=== PATIENT | female | born 1990 | race Two or more races ===

== ENCOUNTER 2017-06-26 22:42 | Emergency (ER) | payer MEDICAID ==
[~2017-06-26] VITALS: Ht 157.5 cm; Wt 65.8 kg
[2017-06-26 23:13] VITALS: BP 109/74
[2017-06-27] MEDS ORDERED: KETOROLAC TROMETH 60MG/2ML VIAL IM ONE ×2 (02:27→02:30)
== END 2017-06-27 03:19 | disposition home or self-care (01) ==
LOC: ER 22:44
DX: S82.65XA Nondisplaced fracture of lateral malleolus of left fibula, initial encounter for closed fracture (principal); X50.1XXA Overexertion from prolonged static or awkward postures, initial encounter; Y93.51 Activity, roller skating (inline) and skateboarding; Y99.8 Other external cause status; Y92.89 Other specified places as the place of occurrence of the external cause
CPT/HCPCS: 29515; 73610; 96372; 99284; J1885

== ENCOUNTER 2017-08-05 17:34 | Emergency (ER) | payer MEDICAID ==
[~2017-08-05] VITALS: Ht 157.5 cm; Wt 67.6 kg
[2017-08-05 18:49] VITALS: BP 122/85
== END 2017-08-05 19:51 | disposition home or self-care (01) ==
LOC: ER 17:38
DX: S82.402D Unspecified fracture of shaft of left fibula, subsequent encounter for closed fracture with routine healing (principal); X58.XXXD Exposure to other specified factors, subsequent encounter; Z88.2 Allergy status to sulfonamides
CPT/HCPCS: 29515

== ENCOUNTER 2017-10-29 19:59 | Emergency (ER) | payer MEDICAID ==
[~2017-10-29] VITALS: Ht 157.5 cm; Wt 63.0 kg
[2017-10-30 00:10] VITALS: BP 126/72
[2017-10-30 01:21] LABS: Urine Bacteria MANY /hpf (None Seen); Urine Blood 1+ /uL (Negative); Urine Hyaline Cast FEW /lpf (0 - 2); Urine Mucus FEW (None Seen); Urine Specific Gravity 1.024 (1.001-1.035); Urine WBC 3 /hpf (0 - 5)
[2017-10-30] MEDS ORDERED: SODIUM CHLORIDE 0.9% 1,000 ML IV ONE (01:34)
== END 2017-10-30 02:50 | disposition home or self-care (01) ==
LOC: ER 19:59
DX: O23.41 Unspecified infection of urinary tract in pregnancy, first trimester (principal); Z88.2 Allergy status to sulfonamides
CPT/HCPCS: 81001; 81025; 96360; 99284; J7030

== ENCOUNTER 2017-11-07 05:47 | Emergency (ER) | payer MEDICAID ==
[~2017-11-07] VITALS: Ht 157.5 cm; Wt 65.8 kg
[2017-11-07 07:01] LABS: Urine Bacteria FEW /hpf (None Seen); Urine Blood TRACE /uL (Negative); Urine Mucus FEW (None Seen); Urine Specific Gravity 1.025 (1.001-1.035); Urine WBC 1 /hpf (0 - 5)
[2017-11-07 08:53] LABS: Basophils # (auto) 0.1 uL; Basophils % (auto) 0.6 % (0.0-2.0); Eosinophils # (auto) 0.6 uL; Eosinophils % (auto) 5.1 % (0.0-7.0); Hematocrit 40.8 % (36.0-46.0); Hemoglobin 13.6 g/dL (12.2-16.2); Lymphocytes # (auto) 2.8 uL; Lymphocytes % (auto) 25.4 % (10.0-50.0); Mean Corpuscular Hemoglobin 28.6 pg (28.0-32.0); Mean Corpuscular Hgb Conc. 33.4 g/dL (32.0-36.0); Mean Corpuscular Volume 85.5 fL (80.0-100.0); Monocytes # (auto) 0.7 uL; Monocytes % (auto) 6.8 % (0.0-12.0); Neutrophils # (auto) 6.8 uL; Neutrophils % (auto) 62.1 % (37.0-80.0); Nucleated Red Blood Cells % 0.1 %; Platelet Count (auto) 410 10^3/uL (140-450); Red Blood Cells 4.77 10^6/uL (4.0-5.20); Red Cell Distribution Width 12.8 % (11.8-14.3); White Blood Cell 10.9 10^3/uL (4.4-10.8)
[2017-11-07 09:13] LABS: Albumin 3.3 g/dL (3.4-5.0); BUN/Creatinine Ratio 14.9; Bilirubin, Total 0.1 mg/dL (0.2-1.0); Calcium 8.8 mg/dL (8.5-10.1); Magnesium 2.3 mg/dL (1.6-2.6); Potassium 3.9 mmol/L (3.5-5.1); Total Protein 8.1 g/dL (6.4-8.2)
[2017-11-07 12:00] VITALS: BP 106/68
== END 2017-11-07 13:30 | disposition home or self-care (01) ==
LOC: ER 05:48
DX: O26.891 Other specified pregnancy related conditions, first trimester (principal); R10.9 Unspecified abdominal pain; R31.9 Hematuria, unspecified; Z3A.10 10 weeks gestation of pregnancy
CPT/HCPCS: 36415; 76805; 80053; 81001; 83735; 84702; 85025

== ENCOUNTER 2018-05-30 12:55 | Observation (INO) | payer MEDICAID, OTHER ==
[~2018-05-30] VITALS: Ht 154.9 cm; Wt 81.2 kg
[2018-05-30] MEDS ORDERED: LACTATED RINGER'S 1,000 ML IV ONE ×2 (13:45→17:10)
[2018-05-30] MEDS ORDERED: NALBUPHINE HCL 10 MG/1ml INJECTION IM ONE (13:45)
[2018-05-30] MEDS ORDERED: PREN-96 PO (13:49)
[2018-05-30] MEDS ORDERED: NALBUPHINE HCL 10 MG/1ml INJECTION IV ONE (14:00)
[2018-05-30 15:47] LABS: Urine Bacteria MOD /hpf (None Seen); Urine Blood 2+ /uL (Negative); Urine Specific Gravity 1.003 (1.001-1.035); Urine WBC <1 /hpf (0 - 5)
[2018-05-30 16:17] LABS: Alcohol, Urine < 3.0 mg/dL (0-5); Amphetamine Screen, Urine NEGATIVE (NEGATIVE); Barbiturate Scree,Urine NEGATIVE (NEGATIVE); Benzodiazephine Screen, Urine NEGATIVE (NEGATIVE); Cannabinoid Screen, Urine NEGATIVE (NEGATIVE); Cocaine Screen, Urine NEGATIVE (NEGATIVE); Opiate Scree,Urine NEGATIVE (NEGATIVE); Phencyclidine Screen, Urine NEGATIVE (NEGATIVE)
== END 2018-05-30 19:05 | disposition home or self-care (01) | DRG 566 ==
LOC: MERGE 12:55 → EDBD 12:55 → LDRP 12:55
PROVIDERS: ADMIT Obstetrics & Gynecology; ATTEND Obstetrics & Gynecology
DX: O62.9 Abnormality of forces of labor, unspecified (principal); O26.893 Other specified pregnancy related conditions, third trimester; R10.9 Unspecified abdominal pain; Z3A.39 39 weeks gestation of pregnancy
CPT/HCPCS: 59025; 80307; 81001; 81002; 96361; 96374; G0378; J2300

== ENCOUNTER 2018-06-03 09:45 | Inpatient (IN) | payer MEDICAID ==
[~2018-06-03 09:45] MED LIST: PREN-96 PO
[2018-06-03] MEDS ORDERED: LACTATED RINGER'S 1,000 ML IV SCH (10:12)
[2018-06-03] MEDS ORDERED: LACT. RINGERS/OXYTOCIN 20UNITS 1,000 ML IV SCH (10:12)
[2018-06-03] MEDS ORDERED: DERMOPLAST 60ML BOTTLE TOP PRN (10:15)
[2018-06-03] MEDS ORDERED: PHISODERM TOP SOLN 240ML BTL TOP PRN (10:15)
[2018-06-03] MEDS ORDERED: NALBUPHINE HCL 10 MG/1ml INJECTION IV PRN (10:15)
[2018-06-03] MEDS ORDERED: CARBOPROST TROMETHAMINE 250 MCG/1ML VIAL IM PRN (10:15)
[2018-06-03] MEDS ORDERED: WITCH HAZEL-GLYCERIN PAD TOP PRN (10:15)
[2018-06-03] MEDS ORDERED: LIDOCAINE 2% (LOCAL ANESTH.) PF 5ml SDV ID PRN (10:15)
[2018-06-03] MEDS ORDERED: METHYLERGONOVINE MALEATE 0.2 MG/ML AMP IM PRN (10:15)
[2018-06-03] MEDS ORDERED: PROMETHAZINE HCL 25 MG/ML 1ML ONE (10:24)
[2018-06-03] MEDS ORDERED: NALBUPHINE HCL 10 MG/1ml INJECTION ONE (10:25)
[2018-06-03] MEDS ORDERED: PROMETHAZINE HCL 25 MG/ML 1ML IV ONE (10:30)
[2018-06-03 10:56] LABS: Urine Bacteria FEW /hpf (None Seen); Urine Blood 1+ /uL (Negative); Urine Specific Gravity 1.012 (1.001-1.035); Urine WBC 3 /hpf (0 - 5)
[2018-06-03 11:01] LABS: Basophils # (auto) 0.1 uL; Basophils % (auto) 0.4 % (0.0-2.0); Eosinophils # (auto) 0.1 uL; Eosinophils % (auto) 0.4 % (0.0-7.0); Hematocrit 39.9 % (36.0-46.0); Hemoglobin 13.3 g/dL (12.2-16.2); Lymphocytes # (auto) 1.7 uL; Lymphocytes % (auto) 10.5 % (10.0-50.0); Mean Corpuscular Hemoglobin 28.5 pg (28.0-32.0); Mean Corpuscular Hgb Conc. 33.3 g/dL (32.0-36.0); Mean Corpuscular Volume 85.6 fL (80.0-100.0); Monocytes # (auto) 0.7 uL; Monocytes % (auto) 4.4 % (0.0-12.0); Neutrophils # (auto) 13.8 uL; Neutrophils % (auto) 84.3 % (37.0-80.0); Platelet Count (auto) 364 10^3/uL (140-450); Red Blood Cells 4.66 10^6/uL (4.0-5.20); Red Cell Distribution Width 14.8 % (11.8-14.3); White Blood Cell 16.4 10^3/uL (4.4-10.8)
[2018-06-03 11:04] LABS: INR 0.85 (0.9-1.15); Partial Thromboplastin Time 26.8 sec (23.78-33.04); Prothrombin Time 9.2 sec (9.27-12.13)
[2018-06-03] MEDS ORDERED: ePHEDrine SULFATE 50 MG/ML AMP IV ONE (11:15)
[2018-06-03] MEDS ORDERED: NALOXONE HCL 0.4 MG/ML VIAL IV ONE (11:15)
[2018-06-03] MEDS ORDERED: fentaNYL CITRATE 100 MCG/2 ML VL IV ONE (11:15)
[2018-06-03] MEDS ORDERED: fentaNYL W ROPIVACAINE 150 ML EPI SCH (11:15)
[2018-06-03] MEDS ORDERED: LIDOCAINE HCL 2 %PF INJ 10ML AMP IJ ONE (11:15)
[2018-06-03 11:18] LABS: Albumin 2.8 g/dL (3.4-5.0); BUN/Creatinine Ratio 10.7; Bilirubin, Total 0.3 mg/dL (0.2-1.0); Calcium 8.7 mg/dL (8.5-10.1); Potassium 3.6 mmol/L (3.5-5.1); Total Protein 7.5 g/dL (6.4-8.2)
[2018-06-03] MEDS ORDERED: fentaNYL CITRATE 100 MCG/2 ML VL ONE (11:28)
[2018-06-03] MEDS ORDERED: fentaNYL W ROPIVACAINE 150 ML EPI ONE (11:28)
[2018-06-03] MEDS ORDERED: LIDOCAINE 2% (LOCAL ANESTH.) PF 5ml SDV ONE ×2 (11:31→16:17)
[2018-06-03] MEDS ORDERED: ePHEDrine SULFATE 50 MG/ML AMP ONE (11:32)
[2018-06-03] MEDS ORDERED: TERBUTALINE SULFATE 1 MG/ML 1ML VIAL SC ONE (12:45)
[2018-06-03] MEDS ORDERED: ACETAMINOPHEN 325 MG TAB PO PRN (18:30)
[2018-06-03 19:00] VITALS: BP 121/68
[2018-06-03] MEDS ORDERED: TETANUS-DIPTH-ACEL PERTUSSIS 0.5ML SYRG IM ONE (22:15)
[2018-06-03 23:08] VITALS: BP 114/65
[2018-06-04 03:15] VITALS: BP 111/60
[2018-06-04 04:08] LABS: RPR Non Reactive (Non Reactive)
[2018-06-04] MEDS: IBUPROFEN 600 MG TAB PO PRN ×2 (04:57→23:00)
[2018-06-04 06:57] VITALS: BP 109/66
[2018-06-04 10:30] VITALS: BP 98/57
[2018-06-04 14:45] VITALS: BP 131/80
[2018-06-04 15:00] VITALS: BP 105/63
[2018-06-04 23:02] VITALS: BP 111/55
[2018-06-05 03:20] VITALS: BP 116/63
[2018-06-05 07:00] VITALS: BP 112/55
[2018-06-05 11:00] VITALS: BP 108/65
[2018-06-05 13:18] VITALS: BP 112/55
[2018-06-05 15:00] VITALS: BP 116/89
[2018-06-05 16:21] VITALS: BP 115/65
== END 2018-06-05 16:15 | disposition home or self-care (01) | DRG 560 ==
LOC: LDRP 09:45 → OBSVTOIN 10:10
PROVIDERS: ADMIT Obstetrics & Gynecology; ATTEND Obstetrics & Gynecology
PROC: 10D07Z6 Extraction of Products of Conception, Vacuum, Via Natural or Artificial Opening (ICD-10-PCS; principal; 2018-06-03)
PROC: 3E0R3BZ Introduction of Anesthetic Agent into Spinal Canal, Percutaneous Approach (ICD-10-PCS; 2018-06-03)
PROC: 00HU33Z Insertion of Infusion Device into Spinal Canal, Percutaneous Approach (ICD-10-PCS; 2018-06-03)
PROC: 0KQM0ZZ Repair Perineum Muscle, Open Approach (ICD-10-PCS; 2018-06-03)
PROC: 3E0234Z Introduction of Serum, Toxoid and Vaccine into Muscle, Percutaneous Approach (ICD-10-PCS; 2018-06-03)
DX: O77.0 Labor and delivery complicated by meconium in amniotic fluid (principal); O72.1 Other immediate postpartum hemorrhage; O70.1 Second degree perineal laceration during delivery; Z37.0 Single live birth; Z88.2 Allergy status to sulfonamides; Z3A.40 40 weeks gestation of pregnancy; Z23 Encounter for immunization; O41.1290 Chorioamnionitis, unspecified trimester, not applicable or unspecified
CPT/HCPCS: 36415; 51702; 59025; 59409; 80053; 81001; 81002; 85025; 85610; 85730; 86592; 86850; 86900; 86901; 90715; 96361; 96365; 96366; 96372; G0378; J2001; J2590; J3010

== ENCOUNTER 2018-09-18 17:03 | Emergency (ER) | payer MEDICAID ==
[~2018-09-18] VITALS: Ht 180.3 cm; Wt 65.8 kg
[2018-09-18 17:43] LABS: Urine Bacteria MANY /hpf (None Seen); Urine Blood Negative /uL (Negative); Urine Mucus FEW (None Seen); Urine Specific Gravity 1.022 (1.001-1.035); Urine WBC 24 /hpf (0 - 5)
[2018-09-18 17:46] LABS: Basophils # (auto) 0.1 uL; Basophils % (auto) 0.7 % (0.0-2.0); Eosinophils # (auto) 0.6 uL; Eosinophils % (auto) 4.5 % (0.0-7.0); Hemoglobin 14.9 g/dL (12.2-16.2); Lymphocytes # (auto) 2.4 uL; Mean Corpuscular Hemoglobin 29.3 pg (28.0-32.0); Mean Corpuscular Hgb Conc. 33.9 g/dL (32.0-36.0); Mean Corpuscular Volume 86.4 fL (80.0-100.0); Monocytes % (auto) 7.4 % (0.0-12.0); Neutrophils # (auto) 9.3 uL; Neutrophils % (auto) 69.4 % (37.0-80.0); Nucleated Red Blood Cells % 0.1 %; Platelet Count (auto) 407 10^3/uL (140-450); Red Blood Cells 5.09 10^6/uL (4.0-5.20); White Blood Cell 13.4 10^3/uL (4.4-10.8)
[2018-09-18 18:03] VITALS: BP 112/65
[2018-09-18 18:06] LABS: Albumin 3.9 g/dL (3.4-5.0); BUN/Creatinine Ratio 13.6; Potassium 3.5 mmol/L (3.5-5.1)
[2018-09-18 18:09] LABS: Bilirubin, Total 0.5 mg/dL (0.2-1.0); Total Protein 8.5 g/dL (6.4-8.2)
[2018-09-18] MEDS ORDERED: cefTRIAXone SOD 1,000 MG VL IM ONE (18:15)
[2018-09-18] MEDS ORDERED: LIDOCAINE W/ EPINEPHRINE 1% 20ML VIAL ONE (18:44)
== END 2018-09-18 18:10 | disposition home or self-care (01) ==
LOC: ER 17:03
DX: J02.9 Acute pharyngitis, unspecified (principal); N39.0 Urinary tract infection, site not specified; Z88.2 Allergy status to sulfonamides
CPT/HCPCS: 36415; 80053; 81001; 81025; 82150; 83690; 85025; 96372; 99283; J0696

== ENCOUNTER 2018-10-29 21:53 | Emergency (ER) | payer MEDICAID ==
[~2018-10-29] VITALS: Ht 154.9 cm; Wt 69.9 kg
[2018-10-29 22:29] LABS: Basophils # (auto) 0.1 uL; Basophils % (auto) 0.8 % (0.0-2.0); Eosinophils # (auto) 0.9 uL; Eosinophils % (auto) 10.2 % (0.0-7.0); Hematocrit 43.6 % (36.0-46.0); Hemoglobin 14.8 g/dL (12.2-16.2); Lymphocytes # (auto) 2.2 uL; Mean Corpuscular Volume 88.3 fL (80.0-100.0); Monocytes # (auto) 0.6 uL; Monocytes % (auto) 6.6 % (0.0-12.0); Neutrophils # (auto) 5.1 uL; Neutrophils % (auto) 57.4 % (37.0-80.0); Nucleated Red Blood Cells % 0.3 %; Platelet Count (auto) 424 10^3/uL (140-450); Red Blood Cells 4.94 10^6/uL (4.0-5.20); Red Cell Distribution Width 13.3 % (11.8-14.3); White Blood Cell 8.9 10^3/uL (4.4-10.8)
[2018-10-29 22:34] LABS: Urine Bacteria NONE SEEN /hpf (None Seen); Urine Blood Negative /uL (Negative); Urine Specific Gravity 1.014 (1.001-1.035); Urine WBC 3 /hpf (0 - 5)
[2018-10-29 22:46] LABS: Potassium 3.8 mmol/L (3.5-5.1)
[2018-10-29 22:53] LABS: Albumin 3.7 g/dL (3.4-5.0); BUN/Creatinine Ratio 18.6; Bilirubin, Total 0.2 mg/dL (0.2-1.0); Calcium 8.8 mg/dL (8.5-10.1)
[2018-10-30 04:00] VITALS: BP 113/65
== END 2018-10-30 04:35 | disposition home or self-care (01) ==
LOC: ER 21:53
DX: N39.0 Urinary tract infection, site not specified (principal); Z88.2 Allergy status to sulfonamides
CPT/HCPCS: 36415; 80053; 81001; 83735; 84702; 85025

== ENCOUNTER 2019-02-28 21:01 | Emergency (ER) | payer MEDICAID ==
[~2019-02-28] VITALS: Ht 154.9 cm; Wt 65.8 kg
[2019-02-28 21:15] VITALS: BP 136/69
== END 2019-02-28 23:55 | disposition left against medical advice (07) ==
LOC: ER 21:03
DX: R05 Cough (principal); R06.02 Shortness of breath; Z53.21 Procedure and treatment not carried out due to patient leaving prior to being seen by health care provider

== ENCOUNTER 2019-07-04 11:16 | Emergency (ER) | payer MEDICAID ==
[~2019-07-04] VITALS: Ht 154.9 cm; Wt 65.8 kg
[2019-07-04] MEDS ORDERED: SODIUM CHLORIDE 0.9% 1,000 ML IVB ONE (11:46)
[2019-07-04] MEDS ORDERED: KETOROLAC TROMETH 30 MG/ML 1ML VIAL IV ONE (12:00)
[2019-07-04] MEDS ORDERED: ONDANSETRON HCL 4 MG/2 ML VIAL IV ONE (12:00)
[2019-07-04 12:14] LABS: Urine WBC None Seen /hpf (0 - 5)
[2019-07-04 12:48] LABS: Urine Bacteria NONE SEEN /hpf (None Seen); Urine Blood Negative /uL (Negative); Urine Specific Gravity 1.003 (1.001-1.035)
[2019-07-04 13:11] LABS: Basophils # (auto) 0.1 uL; Basophils % (auto) 0.9 % (0.0-2.0); Eosinophils # (auto) 0.7 uL; Eosinophils % (auto) 4.5 % (0.0-7.0); Hematocrit 43.5 % (36.0-46.0); Hemoglobin 14.3 g/dL (12.2-16.2); Lymphocytes # (auto) 3.7 uL; Lymphocytes % (auto) 25.2 % (10.0-50.0); Mean Corpuscular Hemoglobin 28.4 pg (28.0-32.0); Mean Corpuscular Hgb Conc. 32.9 g/dL (32.0-36.0); Mean Corpuscular Volume 86.4 fL (80.0-100.0); Monocytes % (auto) 6.6 % (0.0-12.0); Neutrophils # (auto) 9.2 uL; Neutrophils % (auto) 62.8 % (37.0-80.0); Platelet Count (auto) 448 10^3/uL (140-450); Red Blood Cells 5.03 10^6/uL (4.0-5.20); Red Cell Distribution Width 13.3 % (11.8-14.3); White Blood Cell 14.7 10^3/uL (4.4-10.8)
[2019-07-04 13:34] LABS: Albumin 3.8 g/dL (3.4-5.0); Potassium 3.5 mmol/L (3.5-5.1)
[2019-07-04 13:38] LABS: Bilirubin, Total 0.2 mg/dL (0.2-1.0); Total Protein 8.1 g/dL (6.4-8.2)
[2019-07-04 13:41] LABS: INR < 0.93 (0.9-1.15); Partial Thromboplastin Time 25.6 sec (23.64-32.05)
[2019-07-04 14:21] LABS: BUN/Creatinine Ratio 15.3
[2019-07-04 15:51] VITALS: BP 98/55
== END 2019-07-04 16:40 | disposition home or self-care (01) ==
LOC: ER 11:16 → EDUNIT# 11:16 → EDBD 11:16 → ER 16:40
DX: N83.201 Unspecified ovarian cyst, right side (principal); R07.9 Chest pain, unspecified; Z88.2 Allergy status to sulfonamides
CPT/HCPCS: 36415; 71045; 74176; 76856; 80053; 81001; 81025; 83735; 84702; 85025; 85610; 85730; 94761; 96361; 96374; 96375; 99284; J1885; J2405; J7030

== ENCOUNTER 2019-10-02 22:52 | Emergency (ER) | payer MEDICAID ==
[~2019-10-02] VITALS: Ht 154.9 cm; Wt 66.7 kg
[2019-10-02 23:35] LABS: Basophils # (auto) 0.1 uL; Basophils % (auto) 0.8 % (0.0-2.0); Eosinophils # (auto) 0.4 uL; Eosinophils % (auto) 3.8 % (0.0-7.0); Hematocrit 39.4 % (36.0-46.0); Hemoglobin 13.4 g/dL (12.2-16.2); Lymphocytes % (auto) 36.9 % (10.0-50.0); Mean Corpuscular Hemoglobin 29.1 pg (28.0-32.0); Mean Corpuscular Hgb Conc. 34.1 g/dL (32.0-36.0); Mean Corpuscular Volume 85.5 fL (80.0-100.0); Monocytes # (auto) 0.6 uL; Monocytes % (auto) 5.6 % (0.0-12.0); Neutrophils # (auto) 5.7 uL; Neutrophils % (auto) 52.9 % (37.0-80.0); Nucleated Red Blood Cells % 0.1 %; Platelet Count (auto) 393 10^3/uL (140-450); Red Blood Cells 4.61 10^6/uL (4.0-5.20); Red Cell Distribution Width 13.1 % (11.8-14.3); White Blood Cell 10.8 10^3/uL (4.4-10.8)
[2019-10-02 23:52] LABS: Albumin 3.5 g/dL (3.4-5.0); BUN/Creatinine Ratio 12.5; Calcium 8.9 mg/dL (8.5-10.1); Potassium 3.4 mmol/L (3.5-5.1)
[2019-10-02 23:55] LABS: Bilirubin, Total 0.1 mg/dL (0.2-1.0); Total Protein 8.1 g/dL (6.4-8.2)
[2019-10-02 23:56] LABS: INR 0.92 (0.9-1.15); Partial Thromboplastin Time 25.5 sec (23.64-32.05)
[2019-10-03 01:25] VITALS: BP 107/54
[2019-10-03 01:34] LABS: Urine Bacteria FEW /hpf (None Seen); Urine Blood Negative /uL (Negative); Urine Mucus FEW (None Seen); Urine WBC <1 /hpf (0 - 5)
== END 2019-10-03 02:20 | disposition home or self-care (01) ==
LOC: ER 22:57
DX: N83.201 Unspecified ovarian cyst, right side (principal); N83.8 Other noninflammatory disorders of ovary, fallopian tube and broad ligament; Z88.2 Allergy status to sulfonamides
CPT/HCPCS: 36415; 74176; 80053; 81001; 81025; 82150; 83690; 85025; 85610; 85730